=== PATIENT | female | born 1960 | race Caucasian/White ===

== ENCOUNTER 2021-03-28 12:33 | Outpatient (CLI) | payer OTHER ==
--- NOTE | 2021-04-04 09:36 | Mammography Report ---
BILATERAL DIGITAL SCREENING MAMMOGRAM 3D/2D: 03/28/2021 CLINICAL: Routine screening. Comparison is made to exams dated: 06/24/2019 mammogram, 04/26/2017 mammogram, 04/26/2018 mammogram, and 04/11/2016 mammogram - [facility]. There are scattered fibroglandular elements in both breasts. No significant masses, calcifications, or other findings are seen in either breast. There has been no significant interval change. IMPRESSION: NEGATIVE There is no mammographic evidence of malignancy. A 1 year screening mammogram is recommended. This exam was interpreted at Station ID: [id number]. NOTE: For mammograms, a report in lay terms will be sent to the patient. Approximately 15% of breast malignancies will not be visualized mammographically. In the management of a palpable breast mass, a negative mammogram must not discourage biopsy of a clinically suspicious lesion. Electronically Signed By: Chidi Clarke M.D., [email or web address]:03/31/2021 12:42:46 ACR BI-RADS Category 1: Negative [id number] PARENCHYMAL PATTERN: (A) - The breast(s) demonstrate(s) scattered fibroglandular densities. BI-RADS CATEGORY: (1) - 1 RECOMMENDATION: (ANNUAL) - Recommend routine annual screening mammography. [id number] 1 year screening LATERALITY: (B)
== END 2021-03-28 12:34 | disposition home or self-care (01) ==
LOC: DI.N 12:33
PROVIDERS: ATTEND Nurse Practitioner Acute Care
DX: Z12.31 Encounter for screening mammogram for malignant neoplasm of breast (principal)

== ENCOUNTER 2022-09-04 15:22 | Outpatient (CLI) | payer OTHER | END 2022-09-04 15:23 | disposition home or self-care (01) | LOC: CAM 15:22 | PROVIDERS: ATTEND Physician Assistant | DX: G89.0 Central pain syndrome (principal) | CPT/HCPCS: 97810; 97811 ==

== ENCOUNTER 2022-09-11 14:26 | Outpatient (CLI) | payer OTHER | END 2022-09-11 14:27 | disposition home or self-care (01) | LOC: CAM 14:26 | PROVIDERS: ATTEND Physician Assistant | DX: G89.0 Central pain syndrome (principal) | CPT/HCPCS: 97813; 97814 ==

== ENCOUNTER 2022-09-18 15:41 | Outpatient (CLI) | payer OTHER | END 2022-09-18 15:42 | disposition home or self-care (01) | LOC: CAM 15:41 | PROVIDERS: ATTEND Physician Assistant | DX: G89.0 Central pain syndrome (principal) | CPT/HCPCS: 97813; 97814 ==

== ENCOUNTER 2022-09-25 15:52 | Outpatient (CLI) | payer OTHER | END 2022-09-25 15:53 | disposition home or self-care (01) | LOC: CAM 15:52 | PROVIDERS: ATTEND Physician Assistant | DX: G89.0 Central pain syndrome (principal) | CPT/HCPCS: 97813; 97814 ==

== ENCOUNTER 2022-10-02 15:48 | Outpatient (CLI) | payer OTHER | END 2022-10-02 15:49 | disposition home or self-care (01) | LOC: CAM 15:48 | PROVIDERS: ATTEND Physician Assistant | DX: G89.0 Central pain syndrome (principal) | CPT/HCPCS: 97813; 97814 ==

== ENCOUNTER 2022-10-09 15:44 | Outpatient (CLI) | payer OTHER | END 2022-10-09 15:45 | disposition home or self-care (01) | LOC: CAM 15:44 | PROVIDERS: ATTEND Physician Assistant | DX: G89.0 Central pain syndrome (principal) | CPT/HCPCS: 97810; 97811 ==

== ENCOUNTER 2022-10-23 16:02 | Outpatient (CLI) | payer OTHER | END 2022-10-23 16:03 | disposition home or self-care (01) | LOC: CAM 16:02 | PROVIDERS: ATTEND Physician Assistant | DX: G89.0 Central pain syndrome (principal) | CPT/HCPCS: 97810; 97811 ==

== ENCOUNTER 2022-10-30 15:43 | Outpatient (CLI) | payer OTHER | END 2022-10-30 15:44 | disposition home or self-care (01) | LOC: CAM 15:43 | PROVIDERS: ATTEND Physician Assistant | DX: G89.0 Central pain syndrome (principal); M79.7 Fibromyalgia; F32.A Depression, unspecified; M48.00 Spinal stenosis, site unspecified; M19.90 Unspecified osteoarthritis, unspecified site | CPT/HCPCS: 97810; 97811 ==

== ENCOUNTER 2024-04-04 19:13 | Emergency (ER) | payer OTHER ==
[2024-04-04 19:27] VITALS: BP 160/88; O2SAT 100
--- NOTE | 2024-04-04 19:43 | ED Physician Documentation ---
PD HPI BACK PAIN - Stated complaint Stated Complaint: HARD TO WALK/NECK PX - Chief complaint Chief Complaint: Back Pain - History obtained from History obtained from: Patient - Additional information Additional information: 63-year-old female with history of fibromyalgia, loy-oiyxgof-[id number] diabetes on metformin presents by private vehicle from home for several weeks of gradually worsening neck pain and lumbar pain. Patient states that her legs feel weak when she walks for long periods, which is unusual for her. She has had a lot of difficulty bending down to feed or care for her dog at home. Patient tried to call her primary care doctor's office, but they can't fit her in for another 3 weeks. She told them she was feeling somewhat off-balance, and they referred her to the emergency department for further evaluation. Patient reports back pain since she was 21 years old. Denies known accident or injury. Denies bowel or bladder incontinence, denies saddle anesthesia. Review of Systems Constitutional: denies: Fever, Chills GI: denies: Abdominal Pain, Nausea, Vomiting, Constipation, Diarrhea : denies: Dysuria, Frequency, Hesitancy Musculoskeletal: reports: Neck pain, Back pain. denies: Extremity pain, Joint pain, Extremity swelling, Joint swelling Neurologic: denies: Generalized weakness, Focal weakness, Numbness, Difficulty speaking, Near syncope, Syncope, Seizure PD PAST MEDICAL HISTORY - Past Medical History Past Medical History: Yes Cardiovascular: Hypertension, High cholesterol Endocrine/Autoimmune: Type 2 diabetes, HyPOthyroidism Psych: Depression, Anxiety - Past Surgical History Past Surgical History: Yes /AOC DIRECTOR INTELLIGENCE OFFICER: section - Present Medications Home Medications: Ambulatory Orders Medication Instructions Recorded Confirmed methocarbamoL [Methocarbamol] 500 mg PO TID PRN #30 tablet 04/04/24 methylPREDNISolone [Medrol Dose 1 each PO .PACKAGEINSTRUCTIONS 6 04/04/24 Pack] Days #1 each - Allergies Allergies/Adverse Reactions: Allergies Allergy/AdvReac Type Severity Reaction Status Date / Time codeine Allergy Emesis Verified 04/04/24 19:19 Latex, Natural Rubber Allergy Itching Verified 04/04/24 19:19 Penicillins Allergy Rash Verified 04/04/24 19:19 - Social History Does the pt smoke?: No Smoking Status: Never smoker Does the pt drink ETOH?: No Does the pt have substance abuse?: No - Immunizations Immunizations are current?: Yes - POLST Patient has POLST: No PD ED PE NORMAL - Vitals Vital signs reviewed: Yes - General General: Alert and oriented X 3, No acute distress, Well developed/nourished - Neck Neck: Supple, no meningeal sign, No bony TTP - Cardiac Cardiac: RRR - Respiratory Respiratory: No respiratory distress, Clear bilaterally - Abdomen Abdomen: Soft, Non tender, Non distended - Back Back: No CVA TTP, Other (generalized lumbar and cervical tenderness) - Derm Derm: Normal color, Warm and dry, No rash - Extremities Extremities: No deformity, No tenderness to palpate, Normal ROM s pain - Neuro Neuro: Alert and oriented X 3, 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 Muscle tone intact and equal) - Psych Psych: Normal mood, Normal affect Results - Vitals Vitals: Vital Signs - 24 hr 04/04/24 04/04/24 19:19 21:55 Temperature 36.7 C 36.7 C Heart Rate 90 90 Respiratory 16 16 Rate Blood Pressure 160/88 H 160/88 H O2 Saturation 100 100 Oxygen O2 Source Room air - Labs Labs: Laboratory Tests 04/04/24 04/04/24 04/04/24 19:51 19:51 20:33 WBC 7.5 RBC 4.57 Hgb 14.4 Hct 41.9 MCV 91.7 MCH 31.5 H MCHC 34.4 RDW 12.1 Plt Count 228 MPV 9.8 Neut # (Auto) 4.9 Lymph # (Auto) 1.6 Carter # (Auto) 0.7 Eos # (Auto) 0.4 Baso # (Auto) 0.0 Absolute Nucleated RBC 0.00 Nucleated RBC % 0.0 Sodium 136 Potassium 3.9 Chloride 100 L Carbon Dioxide 27 Anion Gap 9.0 BUN 14 Creatinine 0.7 Estimated GFR (MDRD) 85 L Glucose 100 Calcium 9.8 Total Bilirubin 0.8 AST 27 ALT 33 Alkaline Phosphatase 60 Total Protein 6.8 Albumin 4.5 Globulin 2.3 Albumin/Globulin Ratio 2.0 Urine Color LIGHT YELLOW Urine Clarity CLEAR Urine pH 7.0 Ur Specific Hewitt <=1.005 Urine Protein NEGATIVE Urine Glucose (UA) NEGATIVE Urine Ketones NEGATIVE Urine Occult Blood NEGATIVE Urine Nitrite NEGATIVE Urine Bilirubin NEGATIVE Urine Urobilinogen 0.2 (NORMAL) Ur Leukocyte Esterase NEGATIVE Ur Microscopic Review NOT INDICATED Urine Culture Comments NOT INDICATED PD Medical Decision Making - ED course Complexity details: reviewed results, re-evaluated patient, considered differential, d/w patient ED course: Worsening of patient's chronic neck and back pain. Also reporting that she is having weakness in her lower extremities. On exam patient appears to have equal strength in her lower extremities with normal muscle tone and 5 out of 5 strength. No signs or symptoms of cauda equina. Since patient is reporting an acute worsening in symptoms and she has never had imaging before CT imaging will be ordered. I do not notice any neurologic deficits on my exam and patient seems to have no ataxia, however since she says that she seems to be off balance lately a CT brain will also be ordered. Laboratory work is reviewed, unremarkable. CT brain negative for acute findings. CT C-spine and lumbar spine show mild to moderate degenerative changes without other acute findings. Patient informed of all lab and imaging findings, recommended close follow-up with her primary care doctor for further investigation of her back pain and other symptoms. Medrol Dosepak, muscle relaxers sent to pharmacy of choice. Departure - Departure Disposition: Home, Self Care Condition: Stable Instructions: ED Low Back Pain Injury Prescriptions: methylPREDNISolone [Medrol Dose Pack] 1 each PO .PACKAGEINSTRUCTIONS 6 Days #1 each methocarbamoL [Methocarbamol] 500 mg PO TID PRN #30 tablet PRN Reason: MUSCLE SPASM Comments: Your laboratory work and CT imaging today were reassuring. You do have some degenerative changes in your spine, however this is expected for your age range. Follow-up with your primary care doctor to see if any additional testing is needed for your symptoms. In the meantime several medications have been prescribed that may help your symptoms. First is a steroid taper, the second is a muscle relaxer. Do not take the muscle relaxer with alcohol or before driving. The steroids can temporarily increase your blood sugar, so make sure that you monitor your sugars closely. I also recommend alternating Tylenol and Ibuprofen at home for symptoms. RX sent to [facility] in [place] Discharge Date/Time: 04/04/24 21:56
[2024-04-04] MEDS: DEXAMETHASONE 10 MG/ML VIAL IVP STA (19:55)
[2024-04-04] MEDS: KETOROLAC 15 MG/ML VIAL IVP STA (19:56)
[2024-04-04 20:10] LABS: ALBUMIN 4.5 g/dL (3.2-5.5); BILIRUBIN,TOTAL 0.8 mg/dL (0.2-1.0); CALCIUM 9.8 mg/dL (8.5-10.3); CREATININE 0.7 mg/dL (0.6-1.3); POTASSIUM 3.9 mmol/L (3.5-4.5); TOTAL PROTEIN 6.8 g/dL (6.4-8.9)
[2024-04-04 20:11] LABS: BASOPHILS % (AUTO) 0.5 %; EOSINOPHILS # (AUTO) 0.4 10^3/uL (0.0-0.7); EOSINOPHILS % (AUTO) 4.7 %; HCT - HEMATOCRIT 41.9 % (37.0-47.0); HGB - HEMOGLOBIN 14.4 g/dL (12.0-16.0); LYMPHOCYTES # (AUTO) 1.6 10^3/uL (1.5-3.5); MEAN CORPUSCULAR HEMOGLOBIN 31.5 pg (27.0-31.0); MEAN CORPUSCULAR HGB CONC 34.4 g/dL (32.0-36.0); MEAN CORPUSCULAR VOLUME 91.7 fL (81.0-99.0); MEAN PLATELET VOLUME 9.8 fL (7.9-10.8); MONOCYTES # (AUTO) 0.7 10^3/uL (0.0-1.0); MONOCYTES % (AUTO) 8.8 %; NEUTROPHILS # (AUTO) 4.9 10^3/uL (1.5-6.6); NEUTROPHILS % (AUTO) 64.9 %; PLT - PLATELET COUNT 228 10^3/uL (130-450); RED BLOOD COUNT 4.57 10^6/uL (4.20-5.40); RED CELL DISTRIBUTION WIDTH 12.1 % (12.0-15.0); WHITE BLOOD COUNT 7.5 x10^3/uL (4.8-10.8)
[2024-04-04 20:44] LABS: BILIRUBIN,URINE NEGATIVE (NEGATIVE); GLUCOSE, URINE (UA) NEGATIVE (NEGATIVE); KETONES,URINE (UA) NEGATIVE (NEGATIVE); LEUKOCYTE ESTERASE, URINE NEGATIVE (NEGATIVE); NITRITE,URINE NEGATIVE (NEGATIVE); OCCULT BLOOD,URINE NEGATIVE (NEGATIVE); PROTEIN,URINE NEGATIVE (NEGATIVE); UROBILINOGEN,URINE 0.2 (NORMAL) E.U./dL (NORMAL)
[2024-04-04 20:45] LABS: CLARITY,URINE CLEAR (CLEAR)
--- NOTE | 2024-04-04 21:08 | CT Report ---
PROCEDURE: Head WO INDICATIONS: OFF-BALANCE X MONTHS TECHNIQUE: Noncontrast 4.5 mm thick angled axial sections acquired from the foramen magnum to the vertex. For r adiation dose reduction, the following was used: automated exposure control, adjustment of mA and/or kV according to patient size. COMPARISON: None. FINDINGS: Image quality: Diagnostic CSF spaces: Basal cisterns are patent. Lateral ventricles are symmetric. Volume: Generally maintained Brain: No intracranial hemorrhage. Peck-white differentiation is grossly maintained. Craniofacial structures: No significant paranasal sinus opacity IMPRESSION: No acute intracranial abnormality. If there is high concern for parenchymal pathology, consider furth er evaluation with MRI. Reviewed by: Herberth Eastman MD on 04/04/2024 9:07 PM PDT Approved by: Herberth Eastman MD on 04/04/2024 9:07 PM PDT Station ID: [id number]
--- NOTE | 2024-04-04 21:10 | CT Report ---
PROCEDURE: Cervical Spine WO INDICATIONS: NECK PAIN, RADICULOPATHY TECHNIQUE: Noncontrast 3 mm thick sections acquired from the skull base to the T4 level. Sagittal and coronal r eformats were then constructed. For radiation dose reduction, the following was used: automated exp osure control, adjustment of mA and/or kV according to patient size. COMPARISON: None. FINDINGS: Image quality: Diagnostic Bones: Slight anterolisthesis of C3 on C4. There is slight reversal of normal cervical lordosis. Mild overall spondylosis. Soft tissues: No pathologic prevertebral soft tissue swelling. No apical pneumothorax. IMPRESSION: Mild spondylosis. Trace anterolisthesis of C3 on C4 likely degenerative. No traumatic subluxation. If there is high concern for further derangement, consider MRI evaluation. Reviewed by: Herberth Eastman MD on 04/04/2024 9:09 PM PDT Approved by: Herberth Eastman MD on 04/04/2024 9:09 PM PDT Station ID: [id number]
--- NOTE | 2024-04-04 21:12 | CT Report ---
PROCEDURE: Lumbar Spine WO INDICATIONS: LOWER BACK PAIN, THIGH WEAKNESS X 2 MONTHS TECHNIQUE: Noncontrast 3 mm thick sections acquired from the T12 level to the sacrum. Sagittal and coronal refo rmats were constructed. For radiation dose reduction, the following was used: automated exposure co ntrol, adjustment of mA and/or kV according to patient size. COMPARISON: None. FINDINGS: Image quality: Diagnostic Bones: Mild to moderate degenerative changes. Disc space loss and neural foraminal narrowing most pro nounced at L4-L5 and L5-S1, mild to moderate. Scattered Schmorl's nodes. Vertebral body heights are w ell-maintained. No traumatic subluxation. Soft tissues: Gallstones. There are atherosclerotic calcifications. IMPRESSION: Mild to moderate spondylosis. No acute radiographic abnormality. If there is high concern for further derangement, consider MRI evaluation. Reviewed by: Herberth Eastman MD on 04/04/2024 9:11 PM PDT Approved by: Herberth Eastman MD on 04/04/2024 9:11 PM PDT Station ID: [id number]
== END 2024-04-04 21:56 | disposition home or self-care (01) ==
LOC: ED 19:13
DX: M54.2 Cervicalgia (principal); M54.50 Low back pain, unspecified; R53.1 Weakness; I10 Essential (primary) hypertension; E78.00 Pure hypercholesterolemia, unspecified; E11.9 Type 2 diabetes mellitus without complications; E03.9 Hypothyroidism, unspecified; Z91.040 Latex allergy status
CPT/HCPCS: 36415; 80053; 81001; 81003; 85025; 87086; 96374; 96375; 99284